=== PATIENT | male | born 1975 | race Caucasian/White ===

== ENCOUNTER 2017-03-14 09:57 | Emergency (ER) | payer MEDICAID ==
[~2017-03-14] VITALS: Ht 165.1 cm; Wt 49.8 kg
[2017-03-14] MEDS ORDERED: METHOCARBAMOL 750 MG TABLET PO ONE (10:30)
[2017-03-14] MEDS ORDERED: KETOROLAC 30 MG/1 ML IM ONE (10:30)
[2017-03-14] MEDS ORDERED: KETOROLAC 30 MG/1 ML ONE (10:50)
[2017-03-14] MEDS ORDERED: METHOCARBAMOL 750 MG TABLET ONE (10:50)
[2017-03-14 11:19] VITALS: BP 111/70
== END 2017-03-14 11:23 | disposition home or self-care (01) ==
LOC: ED 11:15
DX: S39.012A Strain of muscle, fascia and tendon of lower back, initial encounter (principal); Z88.1 Allergy status to other antibiotic agents; X58.XXXA Exposure to other specified factors, initial encounter; Y93.89 Activity, other specified; Y92.89 Other specified places as the place of occurrence of the external cause; Y99.8 Other external cause status
CPT/HCPCS: 96372; 99283; J1885

== ENCOUNTER 2018-10-25 09:47 | Emergency (ER) | payer SELFPAY ==
[~2018-10-25] VITALS: Ht 165.1 cm; Wt 48.0 kg
[2018-10-25 11:58] VITALS: BP 115/78
--- NOTE | 2018-10-25 12:00 | NUR ---
PT AMBULATORY TO ROOM 4 W/ C/O COUGH X 3 WKS. PT STATES YELLOW PHLEGM. PT ALSO STATES HE COUGHS EXTENSIVELY AND IT CAUSES EMESIS. PT RESTING ON [email or web address] MONITORS APPLIED.
== END 2018-10-25 12:34 | disposition home or self-care (01) ==
LOC: ED 11:49
DX: J45.909 Unspecified asthma, uncomplicated (principal)
CPT/HCPCS: 71046; 93005; 99283